=== PATIENT | female | born 1960 | race Caucasian/White ===

== ENCOUNTER 2016-10-30 07:52 | Emergency (ER) | payer BC ==
[2016-10-30 07:54] VITALS: O2SAT 100
[2016-10-30] MEDS ORDERED: ANTIVERT 25 MG PO ONE (08:23)
[2016-10-30] MEDS ORDERED: Zofran 4 MG/2 ML VIAL IV ONE (08:24)
--- NOTE | 2016-10-30 08:24 | ERPHSYRPT ---
- History of Present Illness Time Seen by Provider: 10/30/16 08:12 Source: patient Exam Limitations: clinical condition Patient Subjective Stated Complaint: DIZZINESS, NAUSEA, DISORIENTATED AT TIME. Triage Nursing Assessment: ALERT X3, PUPILS EQUAL & REACTIVE TO LIGHT 3MM RESPIRATIONS EASY/NORMAL. ABLE TO MOVE ALL EXTERMITIES. NO PAIN AT THIS TIME. GAIT IS UNSTEADY DUE TO DIZZINESS. Physician History: PATIENT COMPLAINS OF DIZZINESS SINCE YESTERDAY WORSE UPON MOTION OF HEAD, LOOKING UP, ASSOCIATED WITH SLIGHT DISORIENTATION, LIGHTHEADEDNESS, AND NAUSEA. DENIES BLURRED VISION, HEADACHE. STATES GAIT IS UNSTEADY DURING EVENTS OF DIZZINESS. Timing/Duration: yesterday Severity: moderate Character of Deficits: other (SLIGHT UNSTEADY GAIT) Deficits: off balance Baseline/Normal Cognition: alert oriented x 3 Current Cognition: alert oriented x 3 Baseline Gait: walks w/o assistance Associated Symptoms: nausea Allergies/Adverse Reactions: divalproex sodium [From Depakote] Allergy (Verified 11/30/14 10:39) adhesive tape Adverse Reaction (Verified 10/30/16 08:11) Rash RILEY SKIN latex Adverse Reaction (Verified 10/30/16 08:11) Rash Home Medications: Alprazolam [Xanax] 0.5 mg PO DAILY PRN PRN 07/07/13 [History] Cyclobenzaprine HCl 10 mg [Flexeril 10 MG] 10 mg PO BID PRN PRN 11/30/14 [ History] Buspirone HCl 5 mg [Buspar 5 mg] 5 mg PO BID 10/30/16 [History] Estradiol [Estrace] 42.5 gm VG WEEKLY 10/30/16 [History] Hydrocodone Bit/Acetaminophen [[place] 5-325 Tablet] 1 each PO DAILY PRN PRN 10/30 [History] Silver Sulfadiazine 50 gm [Silvadene 50 gm] 50 gm TP UD 10/30/16 [History] Hx Tetanus, Diphtheria Vaccination/Date Given: Yes Hx Influenza Vaccination/Date Given: No Hx Pneumococcal Vaccination/Date Given: Yes (2012) Immunizations Up to Date: Yes - Review of Systems Constitutional: No Fever, No Chills Eyes: No Symptoms Ears, Nose, & Throat: No Symptoms Respiratory: No Cough, No Dyspnea Cardiac: No Chest Pain, No Edema, No Syncope Abdominal/Gastrointestinal: Nausea, No Abdominal Pain, No Vomiting, No Diarrhea Genitourinary Symptoms: No Symptoms, No Dysuria Musculoskeletal: No Symptoms, No Back Pain, No Neck Pain Skin: No Rash Neurological: Dizziness, No Focal Weakness, No Sensory Changes Psychological: No Symptoms Endocrine: No Symptoms All Other Systems: Reviewed and Negative - Past Medical History Pertinent Past Medical History: Yes Neurological History: No Pertinent History ENT History: No Pertinent History Cardiac History: No Pertinent History Respiratory History: No Pertinent History Endocrine Medical History: No Pertinent History Musculoskeletal History: Other GI Medical History: No Pertinent History History: No Pertinent History Psycho-Social History: Anxiety Female Reproductive Disorders: No Pertinent History Other Medical History: BULDGING DISK. BARRIATIC SURGERY - Past Surgical History Past Surgical History: Yes Neuro Surgical History: No Pertinent History Cardiac: No Pertinent History Respiratory: No Pertinent History Gastrointestinal: Appendectomy, Cholecystectomy Genitourinary: No Pertinent History Musculoskeletal: No Pertinent History Female Surgical History: Section, Hysterectomy Other Surgical History: BARIATRIC SURGERY - Social History Smoking Status: Former smoker Exposure to second hand smoke: No Drug Use: none Patient Lives Alone: No Significant Family History: no pertinent family hx - Female History Hx Last Menstrual Period: 2000 - Nursing Vital Signs Nursing Vital Signs: Initial Vital Signs Temperature 98.2 F Temperature Source Oral Pulse Rate 59 Respiratory Rate 16 Blood Pressure [] 109/59 Pain Intensity 0 - [place] Coma Scale Best Eye Response ([place]): (4) open spontaneously Best Verbal Response ([place]): (5) oriented Best Motor Response ([place]): (6) obeys commands [place] Total: 15 - Physical Exam General Appearance: no apparent distress Eye Exam: bilateral eye: normal inspection, PERRL Ears, Nose, Throat Exam: normal ENT inspection Neck Exam: normal inspection Respiratory: normal breath sounds Cardiovascular: regular rate/rhythm, normal heart sounds Gastrointestinal: soft, normal bowel sounds Back Exam: normal inspection, normal range of motion Extremity Exam: normal inspection, normal range of motion Peripheral Pulses: carotid (R): 2+, carotid (L): 2+, femoral (R): 2+, femoral (L ): 2+, dorsalis-pedis (R): 2+, dorsalis-pedis (L): 2+ 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, 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 Exam: normal hearing, normal speech Coordination/Gait: normal finger to nose DTR: bicep (R): 2+, bicep (L): 2+, tricep (R): 2+, tricep (L): 2+, knee (R): 2+ , knee (L): 2+, ankle (R): 2+, ankle (L): 2+ Skin Exam: normal color SpO2: 100 Oxygen Delivery: Room Air - Course EKG Interpreted by Me: RATE, Sinus Jon, NORMAL AXIS - CT Exams Head CT Interpretation: Discussed w/radiologist (THERE IS A 14MM CALCIFIED MENINGIOMA IN THE LEFT PARIETAL CONVEXITY, NO EDEMA, OR MASS EFFECT) Ordered Tests: Active Orders 24 hr Category Date Time Status Geology Associate STAT Care 10/30/16 08:19 Active EKG-ER Only STAT Care 10/30/16 08:22 Active IV Insertion STAT Care 10/30/16 08:23 Active Visual Acuity STAT Care 10/30/16 08:21 Active HEAD WITHOUT CONTRAST [CT] Stat Exams 10/30/16 08:22 Completed BMP Stat Lab 10/30/16 08:35 Completed CBC W DIFF Stat Lab 10/30/16 08:35 Completed MAGNESIUM Stat Lab 10/30/16 08:35 Completed Medication Summary Generic Name Dose Route Start Last Admin Trade Name Freq PRN Reason Stop Dose Admin Sodium Chloride 1,000 mls @ 50 mls/hr 10/30/16 08:30 10/30/16 08:49 Sodium Chloride 0.9% 1000 Ml IV 11/29/16 08:29 50 mls/hr .Q20H INDU Administration Discontinued Medications Generic Name Dose Route Start Last Admin Trade Name Freq PRN Reason Stop Dose Admin Sodium Chloride Confirm 10/30/16 08:47 Sodium Chloride 0.9% 1000 Ml Administered 10/30/16 08:48 Dose 1,000 mls @ ud .ROUTE .STK-MED ONE Meclizine HCl 25 mg 10/30/16 08:23 10/30/16 08:49 Antivert 25 Mg PO 10/30/16 08:24 25 mg STAT ONE Administration Meclizine HCl Confirm 10/30/16 08:46 Antivert 25 Mg Administered 10/30/16 08:47 Dose 25 mg .ROUTE .STK-MED ONE Ondansetron HCl 4 mg 10/30/16 08:24 10/30/16 08:49 Zofran 4 Mg/2 Ml Vial IV 10/30/16 08:25 4 mg STAT ONE Administration Ondansetron HCl Confirm 10/30/16 08:46 Zofran 4 Mg/2 Ml Vial Administered 10/30/16 08:47 Dose 4 mg .ROUTE .STK-MED ONE Lab/Rad Data: Laboratory Result Diagrams 10/30/16 08:35 10/30/16 08:35 Laboratory Results 10/30/16 10/30/16 Range/Units 08:35 08:35 WBC 5.0 (4.0-10.5) K/mm3 RBC 4.53 (4.1-5.4) M/mm3 Hgb 13.3 (12.0-16.0) gm/dl Hct 40.5 (35-47) % MCV 89.4 (78-100) fl MCH 29.4 (26-32) pg MCHC 32.8 (32-36) g/dl RDW 12.9 (11.5-14.0) % Plt Count 237 (150-450) K/mm3 MPV 10.0 H (6-9.5) fl Gran % 67.7 H (36.0-66.0) % Lymphocytes % 23.3 L (24.0-44.0) % Monocytes % 6.4 (0.0-12.0) % Eosinophils % 2.2 (0.00-5.0) % Basophils % 0.4 (0.0-0.4) % Basophils # 0.02 (0-0.4) Sodium 142 (136-145) mEq/L Potassium 4.1 (3.5-5.1) mEq/L Chloride 106 (98-107) mEq/L Carbon Dioxide 27.5 (21-32) mEq/L Anion Gap 13.0 (5-15) MEQ/L BUN 15 (9-20) mg/dL Creatinine 0.73 (0.55-1.30) mg/dl Estimated GFR > 60 ML/MIN Glucose 110 (70-110) MG/DL Calcium 9.3 (8.5-10.1) mg/dL Magnesium 2.2 (1.8-2.4) mg/dL - Progress Progress Note: 10/30/16 10:42 PATIENT ADMINISTERED ANTIVERT 25MG ORALLY. IV NORMAL SALINE 100ML/HR, ZOFRAN 4MG IV Discussed with Dr.: Other (DISCUSSED WITH PATIENT'S NEUROLOGIST DR HUDSON AT 1030, WILL EVALUATE IN HIS OFFICE AT 11AM TOMORROW) Will see patient in: other Counseled pt/family regarding: lab results, diagnosis, need for follow-up, rad results - Departure Time of Disposition: 10:54 Departure Disposition: Home Clinical Impression: ACUTE VERTIO, LEFT PARIETAL MENINGOMA Condition: Stable Critical Care Time: No Additional Instructions: ANTIVERT 25MG EVERY 8 HOURS FOR DIZZINESS NEEDED. FOLLOWUP WITH DR LARKIN IN HIS OFFICE AT 11AM TOMORROW. AVOID DRIVING MOTOR VEHICLE UNTIL APPOINTMENT. ZOFRAN 4MG EVERY 4 HOURS FOR NAUSEA NEEDED. Prescriptions: Meclizine HCl 25 mg [Antivert 25 mg] 25 mg PO TIDPRN #20 tablet
[2016-10-30] MEDS ORDERED: Sodium Chloride 0.9% 1000 ML 1,000 ML IV SCH (08:30)
[2016-10-30] MEDS ORDERED: Zofran 4 MG/2 ML VIAL ONE (08:46)
[2016-10-30] MEDS ORDERED: ANTIVERT 25 MG ONE (08:46)
[2016-10-30] MEDS ORDERED: Sodium Chloride 0.9% 1000 ML 1,000 ML ONE (08:47)
[2016-10-30 08:50] LABS: BASOPHIL % 0.4 % (0.0-0.4); Eosinophil % 2.2 % (0.00-5.0); Granulocytes % 67.7 % (36.0-66.0); Lymphocytes % 23.3 % (24.0-44.0); Mean Cell Volume 89.4 fl (78-100); Mean Corpuscular Hemoglobin 29.4 pg (26-32); Monocytes % 6.4 % (0.0-12.0); Platelet Count 237 K/mm3 (150-450); Red Blood Count 4.53 M/mm3 (4.1-5.4); Red Cell Distribution Width 12.9 % (11.5-14.0)
[2016-10-30 09:04] LABS: BLOOD UREA NITROGEN 15 mg/dL (9-20); CHLORIDE 106 mEq/L (98-107); Carbon Dioxide 27.5 mEq/L (21-32); Glucose 110 MG/DL (70-110); MAGNESIUM 2.2 mg/dL (1.8-2.4); Potassium 4.1 mEq/L (3.5-5.1); SODIUM 142 mEq/L (136-145)
--- NOTE | 2016-10-30 09:20 | XRAY ---
Indication: Dizziness and disorientation. Multiple contiguous axial images obtained through the head without contrast. Comparison: None There is a 14 mm calcified meningioma in the left parietal convexity. No acute intracranial hemorrhage, abnormal extra-axial fluid collection, or mass effect. Fourth ventricle is midline without hydrocephalus. Dave-white matter differentiation preserved. Bony calvarium intact. Visualized paranasal sinuses and mastoid air cells are pneumatized and clear. Impression: Left parietal calcified meningioma. No acute intracranial abnormalities. CT DI 70.87
[2016-10-30 10:39] VITALS: BP 109/59; PULSE 59
== END 2016-10-30 11:05 | disposition home or self-care (01) ==
LOC: ED 07:52
DX: R42 Dizziness and giddiness (principal); C70.0 Malignant neoplasm of cerebral meninges; R11.0 Nausea; R41.0 Disorientation, unspecified
CPT/HCPCS: 36000; 36415; 70450; 80048; 83735; 85025; 93005; 93041; 96360; 96361; 99283; J2405

== ENCOUNTER 2021-04-15 10:50 | Emergency (ER) | payer BC ==
[2021-04-15 11:26] LABS: Absolute Neutrophil Ct (ANC) 6.33 (1.4-6.9); BASOPHIL % 0.3 % (0.0-0.4); Basophil (Absolute #) 0.02 (0-0.4); Eosinophil % 0.4 % (0.00-5.0); Eosinophil (Absolute #) 0.03 (0-0.5); Hematocrit 42.1 % (35-47); Hemoglobin 13.7 gm/dl (12.0-16.0); Lymphocyte (Absolute #) 0.97 (1.0-4.6); Lymphocytes % 12.5 % (24.0-44.0); Mean Cell Volume 89.6 fl (78-100); Mean Corpuscular Hemoglobin 29.1 pg (26-32); Mean Corpuscular Hgb Concent. 32.5 g/dl (32-36); Mean Platelet Volume 9.8 fl (7.5-11.0); Monocyte (Absolute #) 0.44 (0.0-1.3); Monocytes % 5.6 % (0.0-12.0); Neutrophil % 81.2 % (36.0-66.0); Platelet Count 287 K/mm3 (150-450); Red Cell Distribution Width 14.3 % (11.5-14.0); White Blood Count 7.8 K/mm3 (4.0-10.5)
[2021-04-15 11:35] LABS: ALKALINE PHOSPHATASE 75 U/L (38-126); BLOOD UREA NITROGEN 14 mg/dL (7-17); CHLORIDE 103 mmol/L (98-107); CK-Creatinine Phosphokinase 94 U/L (30-135); Calcium 9.7 mg/dL (8.4-10.2); Carbon Dioxide 26 mmol/L (22-30); Creatinine 1 0.56 mg/dL (0.52-1.04); EST GLOMERULAR FILTRATION RATE > 60.0 ML/MIN; Glucose 105 mg/dL (74-106); Potassium 4.1 mmol/L (3.5-5.1); SGOT/AST 29 U/L (14-36); SGPT/ALT 21 U/L (0-35); SODIUM 139 mmol/L (137-145); Total Protein 7.7 g/dL (6.3-8.2)
--- NOTE | 2021-04-15 12:24 | ERPHSYRPT ---
- History of Present Illness Time Seen by Provider: 04/15/21 11:00 Source: patient Patient Subjective Stated Complaint: pt reports possible seizure this morning, states she woke at 7am and remembers receiving a text from a friend and then she woke again at 10am lying on the floor next to her bed. pt states bed was made and she had taken her meds but does not remember doing those things. pt states she does have abrasions to her tongue and some soreness to her right shoulder. pt reports history of seizures 20 years ago related to stress, pt reports she is currently under a lot of stress Triage Nursing Assessment: pt is aox3, pupils perrl, pt speech clear, normal, answers all questions appropriately, pt ambulatory to room with no difficulties, pt radial pulses strong and equal, cap refill < 3 seconds, pt skin pink warm dry. pt with multiple abrasions to bilat tongue and tip, no bleeding at this time. pt ROM and sensation intact. Physician History: Patient is a 60-year-old female who presents with a questionable seizure at home this morning. Patient does have a he is history of seizures 20 years ago which were stress related she received no recent anticonvulsive therapy for the past 3 years. She does have Silvia anxiety disorder does take Xanax as prescribed she had some abrasions to the tongue this morning and pain in her right shoulder where she had previously had rotator cuff surgery. This morning she got up and was texting a friend at 7 AM her next cognitive episode was on the found herself on the floor at 10 AM the bed had been made her tongue had abrasions and felt strange she apparently did bite her tongue. Other things was that she had a recent EGD and grew very cold after the anesthetic and had to be given warm blankets she also had rotator cuff therapy surgery on the right shoulder 1220 and has been off work for almost a year she is under a great deal of stress from many other factors in her life. Timing/Duration: today Severity: moderate Character of Deficits: none Deficits: no difficulties Baseline/Normal Cognition: alert oriented x 3 Current Cognition: alert oriented x 3 Baseline Gait: walks w/o assistance Associated Symptoms: loss of consciousness Allergies/Adverse Reactions: adhesive tape Adverse Reaction (Verified 04/15/21 11:13) Rash [place] SK[place] latex Adverse Reaction (Verified 04/15/21 11:13) Rash Home Medications: Alprazolam [Xanax] 0.5 mg PO DAILY PRN PRN 07/07/13 [History] Acyclovir 200 mg Cap [Zovirax 200 mg ] 200 mg PO HS 04/15/21 [History] Cholecalciferol (Vitamin D3) [Vitamin D] 1 tablet PO HS 04/15/21 [History] Multivitamin [Multi-Vitamin Daily] 1 each PO HS 04/15/21 [History] Omeprazole 40 mg PO HS 04/15/21 [History] Hx Tetanus, Diphtheria Vaccination/Date Given: Yes Hx Influenza Vaccination/Date Given: Yes Hx Pneumococcal Vaccination/Date Given: No Travel Risk - International Travel Have you traveled outside of the country in past 3 weeks: No - Coronavirus Screening Are you exhibiting any of the following symptoms?: No Close contact with a COVID-19 positive Pt in past 14-21 Days: No - Vaccine Status Have you recieved a Covid-19 vaccination: Yes Spiral Tube Winder: Noise Freaksa - Vaccination Dates Date of 2cond Vaccination (if applicable): 02/10/21 - Review of Systems Constitutional: No Fever, No Chills Eyes: No Symptoms Ears, Nose, & Throat: No Symptoms Respiratory: No Cough, No Dyspnea Cardiac: No Chest Pain, No Edema, No Syncope Abdominal/Gastrointestinal: No Abdominal Pain, No Nausea, No Vomiting, No Diarrhea Genitourinary Symptoms: No Dysuria Musculoskeletal: No Back Pain, No Neck Pain Skin: No Rash Neurological: Other (Unusual for the apparent seizure), No Dizziness, No Focal Weakness, No Sensory Changes Psychological: No Symptoms, Anxiety, Depression Endocrine: No Symptoms All Other Systems: Reviewed and Negative - Past Medical History Pertinent Past Medical History: Yes Neurological History: Seizures ENT History: No Pertinent History Cardiac History: No Pertinent History Respiratory History: No Pertinent History Endocrine Medical History: No Pertinent History Musculoskeletal History: Arthritis, Fractures GI Medical History: No Pertinent History History: No Pertinent History Psycho-Social History: Anxiety Female Reproductive Disorders: No Pertinent History Other Medical History: BULDGING DISK. BARRIATIC SURGERY - Past Surgical History Past Surgical History: Yes Neuro Surgical History: No Pertinent History Cardiac: No Pertinent History Respiratory: No Pertinent History Gastrointestinal: Appendectomy, Cholecystectomy Genitourinary: No Pertinent History Musculoskeletal: Orthopedic Surgery Female Surgical History: Section, Hysterectomy Other Surgical History: BARIATRIC SURGERY. bilat shoulder surgeries - Social History Smoking Status: Former smoker Exposure to second hand smoke: No Drug Use: none Patient Lives Alone: No Significant Family History: no pertinent family hx - Nursing Vital Signs Nursing Vital Signs: Initial Vital Signs Temperature 98.0 F 04/15/21 10:52 Pulse Rate 86 04/15/21 10:52 Respiratory Rate 18 04/15/21 10:52 Blood Pressure 144/84 04/15/21 10:52 O2 Sat by Pulse Oximetry 100 04/15/21 10:52 Pain Scale Pain Intensity 5 - [place] Coma Scale Best Eye Response ([place]): (4) open spontaneously Best Verbal Response ([place]): (5) oriented Best Motor Response ([place]): (6) obeys commands [place] Total: 15 - Physical Exam General Appearance: no apparent distress, alert Eye Exam: bilateral eye: PERRL, EOMI Ears, Nose, Throat Exam: normal ENT inspection, moist mucous membranes Neck Exam: normal inspection, non-tender, supple Respiratory: normal breath sounds, lungs clear, airway intact, No respiratory distress Cardiovascular: regular rate/rhythm, No edema Gastrointestinal: soft, No tenderness, No distention Back Exam: normal inspection Extremity Exam: other (There is tenderness over the right clavicular shoulder area to palpation full range of motion.), No pedal edema Peripheral Pulses: carotid (R): 2+, carotid (L): 2+ 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, 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: tongue midline Coordination/Gait: normal finger to nose, normal gait Motor/Sensory: no motor deficit, no sensory deficit, no pronator drift Skin Exam: normal color, warm, dry, No rash SpO2 Interpretation: normal SpO2: 100 O2 Delivery: Room Air - Course Nursing assessment & vital signs reviewed: Yes EKG Interpreted by Me: RATE (57), Sinus Rhythm, NORMAL AXIS, NORMAL INTERVALS, NORMAL QRS, NORMAL ST-T - CT Exams Head CT Interpretation: Tele-radiologist Report Ordered Tests: Active Orders 24 hr Category Date Time Status CHEST 1 VIEW (PORTABLE) Stat Exams 04/15/21 11:06 Ordered HEAD WITHOUT CONTRAST [CT] Stat Exams 04/15/21 11:06 Ordered SHOULDER Stat Exams 04/15/21 11:08 Ordered CBC W DIFF Stat Lab 04/15/21 11:25 Completed CK-Creatinine Phosphokinase Stat Lab 04/15/21 11:25 Completed CMP Stat Lab 04/15/21 11:25 Completed Lactic Acid Stat Lab 04/15/21 11:06 Completed UA W/RFX UR CULTURE Stat Lab 04/15/21 11:06 Ordered Urine Triage Profile Stat Lab 04/15/21 11:06 Ordered Lab/Rad Data: Laboratory Result Diagrams 04/15/21 11:25 04/15/21 11:25 Laboratory Results 04/15/21 04/15/21 04/15/21 Range/Units 11:25 11:25 11:06 WBC 7.8 (4.0-10.5) K/mm3 RBC 4.70 (4.1-5.4) M/mm3 Hgb 13.7 (12.0-16.0) gm/dl Hct 42.1 (35-47) % MCV 89.6 (78-100) fl MCH 29.1 (26-32) pg MCHC 32.5 (32-36) g/dl RDW 14.3 H (11.5-14.0) % Plt Count 287 (150-450) K/mm3 MPV 9.8 (7.5-11.0) fl Gran % 81.2 H (36.0-66.0) % Eos # (Auto) 0.03 (0-0.5) Absolute Lymphs (auto) 0.97 L (1.0-4.6) Absolute Monos (auto) 0.44 (0.0-1.3) Lymphocytes % 12.5 L (24.0-44.0) % Monocytes % 5.6 (0.0-12.0) % Eosinophils % 0.4 (0.00-5.0) % Basophils % 0.3 (0.0-0.4) % Absolute Granulocytes 6.33 (1.4-6.9) Basophils # 0.02 (0-0.4) Sodium 139 (137-145) mmol/L Potassium 4.1 (3.5-5.1) mmol/L Chloride 103 (98-107) mmol/L Carbon Dioxide 26 (22-30) mmol/L Anion Gap 14.0 (5-15) MEQ/L BUN 14 (7-17) mg/dL Creatinine 0.56 (0.52-1.04) mg/dL Estimated GFR > 60.0 ML/MIN Glucose 105 (74-106) mg/dL Lactic Acid 0.9 (0.4-2.0) Calcium 9.7 (8.4-10.2) mg/dL Total Bilirubin 0.80 (0.2-1.3) mg/dL AST 29 (14-36) U/L ALT 21 (0-35) U/L Alkaline Phosphatase 75 (38-126) U/L Creatine Kinase 94 (30-135) U/L Serum Total Protein 7.7 (6.3-8.2) g/dL Albumin 5.0 (3.5-5.0) g/dL - Progress Progress: unchanged - Departure Departure Disposition: Home Clinical Impression: Seizure disorder Condition: Stable Critical Care Time: No Referrals: DOCTOR,NO FAMILY [Primary Care Provider] - Instructions: Seizures, Adult (DC) Additional Instructions: Patient was instructed not to drive climb ladders etc. or participate in any dangerous activity of height. She was instructed to follow-up with neurology. She was told she would need an MRI.
[2021-04-15 12:46] VITALS: BP 131/76; PULSE 64; O2SAT 99
--- NOTE | 2021-04-15 20:12 | XRAY ---
Indication: Seizure. Comparison: July 07, 2013. Portable chest clear. Heart not enlarged. Bony thorax intact again with mild osteopenia and degenerative changes. No new/acute findings.
--- NOTE | 2021-04-15 20:14 | XRAY ---
Indication: Seizure. Multiple contiguous axial images obtained through the head without contrast. Comparison: October 30, 2016. Stable 14 mm calcified meningioma in the left parietal convexity. Again no acute intracranial hemorrhage, abnormal extra-axial fluid collection, or mass effect. Fourth ventricle is midline without hydrocephalus. Dave-white matter differentiation preserved. Bony calvarium intact. Visualized paranasal sinuses and mastoid air cells are clear. Impression: 1. Stable left parietal calcified meningioma. 2. No new/acute intracranial abnormalities. Comment: Preliminary interpretation was made by [facility]. No critical discrepancy.
--- NOTE | 2021-04-15 20:16 | XRAY ---
Indication: Pain following seizure/fall. Comparison: None 3 view right shoulder demonstrates osteopenia, moderate acromioclavicular degenerative arthropathy, and mild glenohumeral degenerative arthropathy. No other bony, articular, or soft tissue abnormalities.
== END 2021-04-15 12:48 | disposition home or self-care (01) ==
LOC: ED 10:50
DX: G40.909 Epilepsy, unspecified, not intractable, without status epilepticus (principal); S00.512A Abrasion of oral cavity, initial encounter; M25.511 Pain in right shoulder; F41.9 Anxiety disorder, unspecified; Z79.899 Other long term (current) drug therapy
CPT/HCPCS: 36000; 36415; 70450; 71045; 73030; 80053; 82550; 83605; 84146; 85025; 99284

== ENCOUNTER 2022-01-29 16:15 | Emergency (ER) | payer BC ==
[2022-01-29 16:48] VITALS: O2SAT 99
--- NOTE | 2022-01-29 16:53 | ERPHSYRPT ---
- History of Present Illness Source: patient Exam Limitations: no limitations Patient Subjective Stated Complaint: pt states "I have beening having this itching for the past couple months. I had these spots and blisters that popped up a week and half ago." Triage Nursing Assessment: pt ambulated into the er; pt is axo x4; c/o rash and itching; pt denies pain; pt states that MD increased seizure medication 2 months ago; pt states since medication increase she has had itching; multiple scabs on yanna hands; pt is itching; dispursed raised marvin areas; clear lung sounds in all lobes; active bowel sounds in all quads; mucus membranes pink and moist; vitals wnl Physician History: 61 yo wf w bullous, erythematous eruption on hands 2 wks ago which has resolved and also complains of generalized pruritis x 1month. She has a few diffuse, small erythematous areas scattered on her body. 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 Fever/cough/N/V/D/dyspnea/CP/AVELAR are all denied. Timing/Duration: other (1month) Quality: itchy Severity: mild Location: generalized Possible Causes: no cause identified (?Lamictal) Associated Symptoms: blisters (Hands that have resolved), rash, No change in skin texture, No difficulty breathing, No edema, No fever, No flushing, No headache, No hives, No jaundice, No malaise, No nasal congestion, No numbness, No pallor, No paresthesia, No petechiae, No sore throat Allergies/Adverse Reactions: nitrofurantoin [From Macrobid] Allergy (Verified 01/29/22 16:24) sulfamethoxazole [From Bactrim] Allergy (Verified 01/29/22 16:24) trimethoprim [From Bactrim] Allergy (Verified 01/29/22 16:24) adhesive tape Adverse Reaction (Verified 01/29/22 16:24) Rash [place] SK[place] latex Adverse Reaction (Verified 01/29/22 16:24) Rash Home Medications: Alprazolam [Xanax] 0.5 mg PO DAILY 07/07/13 [History] Multivitamin [Multi-Vitamin Daily] 1 each PO HS 04/15/21 [History] Omeprazole 40 mg PO HS 04/15/21 [History] Lamotrigine [Lamotrigine ER] 100 mg PO BID 01/29/22 [History] Hx Tetanus, Diphtheria Vaccination/Date Given: Yes Hx Influenza Vaccination/Date Given: No Hx Pneumococcal Vaccination/Date Given: No Travel Risk - International Travel Have you traveled outside of the country in past 3 weeks: No - Coronavirus Screening Are you exhibiting any of the following symptoms?: No Close contact with a COVID-19 positive Pt in past 14-21 Days: No - Vaccine Status Have you recieved a Covid-19 vaccination: Yes Team Primary Care Physician: Moderna - Vaccination Dates Date of 2cond Vaccination (if applicable): 02/10/21 - Review of Systems Constitutional: No Symptoms Eyes: No Symptoms Ears, Nose, & Throat: No Symptoms Respiratory: No Symptoms Cardiac: No Symptoms Abdominal/Gastrointestinal: No Symptoms Genitourinary Symptoms: No Symptoms Musculoskeletal: No Symptoms Skin: Rash Neurological: No Symptoms Psychological: No Symptoms Endocrine: No Symptoms Hematologic/Lymphatic: No Symptoms Immunological/Allergic: No Symptoms - Past Medical History Pertinent Past Medical History: Yes Neurological History: Seizures ENT History: No Pertinent History Cardiac History: No Pertinent History Respiratory History: No Pertinent History Endocrine Medical History: No Pertinent History Musculoskeletal History: Arthritis, Fractures GI Medical History: No Pertinent History History: No Pertinent History Psycho-Social History: Anxiety Female Reproductive Disorders: No Pertinent History Other Medical History: BULDGING DISK. BARRIATIC SURGERY - Past Surgical History Past Surgical History: Yes Neuro Surgical History: No Pertinent History Cardiac: No Pertinent History Respiratory: No Pertinent History Gastrointestinal: Appendectomy, Cholecystectomy Genitourinary: No Pertinent History Musculoskeletal: Orthopedic Surgery Female Surgical History: Section, Hysterectomy Other Surgical History: BARIATRIC SURGERY. bilat shoulder surgeries - Social History Smoking Status: Former smoker Exposure to second hand smoke: No Drug Use: none Patient Lives Alone: No Significant Family History: no pertinent family hx - Nursing Vital Signs Nursing Vital Signs: Initial Vital Signs Temperature 97.6 F 01/29/22 16:26 Pulse Rate 72 01/29/22 16:26 Respiratory Rate 16 01/29/22 16:26 Blood Pressure 122/66 01/29/22 16:26 O2 Sat by Pulse Oximetry 99 01/29/22 16:26 Pain Scale Pain Intensity 0 WNL - Physical Exam General Appearance: no apparent distress Eye Exam: PERRL/EOMI, eyes nml inspection Ears, Nose, Throat Exam: normal ENT inspection, TMs normal, pharynx normal, moist mucous membranes Neck Exam: normal inspection, non-tender, supple Respiratory Exam: normal breath sounds, lungs clear, airway intact Cardiovascular Exam: regular rate/rhythm, normal heart sounds, normal peripheral pulses, capillary refill <2 sec, No murmur Gastrointestinal/Abdomen Exam: soft, normal bowel sounds, No tenderness Back Exam: normal inspection, normal range of motion, No CVA tenderness Extremity Exam: normal inspection, normal range of motion Neurologic Exam: alert, oriented x 3, cooperative, electronic tech II-XII nml as tested, normal mood/affect, nml cerebellar function, nml station & gait, sensation nml Skin Exam: other (Few punctate erythematous areas arms) Lymphatic Exam: No adenopathy SpO2 Interpretation: normal SpO2: 99 O2 Delivery: Room Air - Course Nursing assessment & vital signs reviewed: Yes Ordered Tests: Active Orders 24 hr Category Date Time Status CBC W DIFF Stat Lab 01/29/22 16:48 Completed CMP Stat Lab 01/29/22 16:48 Completed Lab/Rad Data: Laboratory Result Diagrams 01/29/22 16:48 01/29/22 16:48 Laboratory Results 01/29/22 01/29/22 Range/Units 16:48 16:48 WBC 6.3 (4.0-10.5) K/mm3 RBC 3.99 L (4.1-5.4) M/mm3 Hgb 11.4 L (12.0-16.0) gm/dl Hct 35.2 (35-47) % MCV 88.2 (78-100) fl MCH 28.6 (26-32) pg MCHC 32.4 (32-36) g/dl RDW 13.0 (11.5-14.0) % Plt Count 288 (150-450) K/mm3 MPV 9.3 (7.5-11.0) fl Gran % 65.0 (36.0-66.0) % Eos # (Auto) 0.07 (0-0.5) Absolute Lymphs (auto) 1.60 (1.0-4.6) Absolute Monos (auto) 0.50 (0.0-1.3) Lymphocytes % 25.6 (24.0-44.0) % Monocytes % 8.0 (0.0-12.0) % Eosinophils % 1.1 (0.00-5.0) % Basophils % 0.3 (0.0-0.4) % Absolute Granulocytes 4.06 (1.4-6.9) Basophils # 0.02 (0-0.4) Sodium 138 (137-145) mmol/L Potassium 4.2 (3.5-5.1) mmol/L Chloride 104 (98-107) mmol/L Carbon Dioxide 25 (22-30) mmol/L Anion Gap 12.8 (5-15) MEQ/L BUN 19 H (7-17) mg/dL Creatinine 0.56 (0.52-1.04) mg/dL Estimated GFR > 60.0 ML/MIN Glucose 86 (74-106) mg/dL Calcium 9.1 (8.4-10.2) mg/dL Total Bilirubin 0.80 (0.2-1.3) mg/dL AST 35 (14-36) U/L ALT 18 (0-35) U/L Alkaline Phosphatase 79 (38-126) U/L Serum Total Protein 6.5 (6.3-8.2) g/dL Albumin 4.3 (3.5-5.0) g/dL - Progress Counseled pt/family regarding: lab results, diagnosis, need for follow-up - Departure Departure Disposition: Home Clinical Impression: Rash and nonspecific skin eruption Condition: Stable Critical Care Time: No Referrals: JONATAN VALLADARES [Primary Care Provider] - Follow up/PCP as directed Instructions: Skin Rash (DC) Additional Instructions: Stop your Lamictal and follow up with your neurologist in AM Return to ER as needed
[2022-01-29 16:54] LABS: Absolute Neutrophil Ct (ANC) 4.06 (1.4-6.9); Basophil (Absolute #) 0.02 (0-0.4); Eosinophil % 1.1 % (0.00-5.0); Eosinophil (Absolute #) 0.07 (0-0.5); Hematocrit 35.2 % (35-47); Hemoglobin 11.4 gm/dl (12.0-16.0); Lymphocytes % 25.6 % (24.0-44.0); Mean Cell Volume 88.2 fl (78-100); Mean Corpuscular Hemoglobin 28.6 pg (26-32); Mean Corpuscular Hgb Concent. 32.4 g/dl (32-36); Mean Platelet Volume 9.3 fl (7.5-11.0); Platelet Count 288 K/mm3 (150-450); Red Blood Count 3.99 M/mm3 (4.1-5.4); White Blood Count 6.3 K/mm3 (4.0-10.5)
[2022-01-29 17:09] LABS: ALBUMIN 4.3 g/dL (3.5-5.0); ALKALINE PHOSPHATASE 79 U/L (38-126); ANION GAP 12.8 MEQ/L (5-15); BLOOD UREA NITROGEN 19 mg/dL (7-17); CHLORIDE 104 mmol/L (98-107); Calcium 9.1 mg/dL (8.4-10.2); Carbon Dioxide 25 mmol/L (22-30); Creatinine 1 0.56 mg/dL (0.52-1.04); EST GLOMERULAR FILTRATION RATE > 60.0 ML/MIN; Glucose 86 mg/dL (74-106); Potassium 4.2 mmol/L (3.5-5.1); SGOT/AST 35 U/L (14-36); SGPT/ALT 18 U/L (0-35); SODIUM 138 mmol/L (137-145); Total Protein 6.5 g/dL (6.3-8.2)
[2022-01-29 17:18] VITALS: BP 106/64; PULSE 45
== END 2022-01-29 17:27 | disposition home or self-care (01) ==
LOC: ED 16:15
DX: R21 Rash and other nonspecific skin eruption (principal); L29.9 Pruritus, unspecified; Z79.899 Other long term (current) drug therapy
CPT/HCPCS: 36415; 80053; 85025; 99283

== ENCOUNTER 2023-06-09 12:16 | Emergency (ER) | payer BC, OTHER ==
--- NOTE | 2023-06-09 12:24 | ERPHSYRPT ---
- History of Present Illness Time Seen by Provider: 06/09/23 12:24 Source: patient, family Exam Limitations: no limitations Physician History: This is a 62-year-old white female patient who has known seizure disorder on Xanax and lamotrigine who states she took her medicine as prescribed and had an episode of seizure with post seizure confusion per patient's significant other. The seizure was not witnessed. However, it was assumed she had a seizure since she had a headache followed by a period of confusion which was witnessed by her significant other. Patient has known meningioma brain tumor which has not changed in many years. She has not seen her neurologist in a while. Patient denies chest pain. She denies hitting her head before this episode or during her episode. She does have a left-sided headache. She denies shortness of breath. She has had no nausea vomiting or diarrhea symptoms. She did not have any urinary or bowel incontinence. There are no new stressors. There is been no change in her medications. Timing/Duration: today Severity: mild Character of Deficits: none Deficits: no difficulties Baseline/Normal Cognition: alert oriented x 3 Current Cognition: alert oriented x 3 Baseline Gait: walks w/o assistance Associated Symptoms: seizures (Resolved by the time she arrived here to the emergency room. However, there was a brief period of near syncope in the emergency department waiting room that was witnessed.) Allergies/Adverse Reactions: nitrofurantoin [From Macrobid] Allergy (Verified 06/09/23 14:25) sulfamethoxazole [From Bactrim] Allergy (Verified 06/09/23 14:25) trimethoprim [From Bactrim] Allergy (Verified 06/09/23 14:25) adhesive tape Adverse Reaction (Verified 06/09/23 14:25) Rash [place] SKIN latex Adverse Reaction (Verified 06/09/23 14:25) Rash Home Medications: Alprazolam [Xanax] 0.5 mg PO DAILY 07/07/13 [History] Multivitamin [Multi-Vitamin Daily] 1 each PO HS 04/15/21 [History] Omeprazole 40 mg PO HS 04/15/21 [History] Lamotrigine [Lamotrigine ER] 100 mg PO BID 01/29/22 [History] Alendronate Sodium 70 mg [Fosamax 70 MG] 70 mg PO Q7D@0600 06/09/23 [History] Hx Tetanus, Diphtheria Vaccination/Date Given: Yes Hx Influenza Vaccination/Date Given: No Hx Pneumococcal Vaccination/Date Given: No Travel Risk - International Travel Have you traveled outside of the country in past 3 weeks: No - Coronavirus Screening Are you exhibiting any of the following symptoms?: No Close contact with a COVID-19 positive Pt in past 14-21 Days: No - Vaccine Status Have you recieved a Covid-19 vaccination: Yes Box Feeder: Moderna - Vaccination Dates Date of 2cond Vaccination (if applicable): 02/10/21 - Review of Systems Constitutional: No Symptoms Eyes: No Symptoms Ears, Nose, & Throat: No Symptoms Respiratory: No Symptoms Cardiac: No Symptoms Abdominal/Gastrointestinal: No Symptoms Genitourinary Symptoms: No Symptoms Musculoskeletal: No Symptoms Skin: No Symptoms Neurological: Headache (Left side), Seizure (Resolved by the time she was back in the emergency department) Psychological: No Symptoms Endocrine: No Symptoms Hematologic/Lymphatic: No Symptoms Immunological/Allergic: No Symptoms All Other Systems: Reviewed and Negative - Past Medical History Pertinent Past Medical History: Yes Neurological History: Seizures ENT History: No Pertinent History Cardiac History: No Pertinent History Respiratory History: No Pertinent History Endocrine Medical History: No Pertinent History Musculoskeletal History: Arthritis, Fractures GI Medical History: No Pertinent History History: No Pertinent History Psycho-Social History: Anxiety Female Reproductive Disorders: No Pertinent History Other Medical History: BULDGING DISK. BARRIATIC SURGERY - Past Surgical History Past Surgical History: Yes Neuro Surgical History: No Pertinent History Cardiac: No Pertinent History Respiratory: No Pertinent History Gastrointestinal: Appendectomy, Cholecystectomy Genitourinary: No Pertinent History Musculoskeletal: Orthopedic Surgery Female Surgical History: Section, Hysterectomy Other Surgical History: BARIATRIC SURGERY. bilat shoulder surgeries - Social History Smoking Status: Former smoker Exposure to second hand smoke: No Drug Use: none Patient Lives Alone: No Significant Family History: no pertinent family hx - Nursing Vital Signs Nursing Vital Signs: Initial Vital Signs Temperature 97.4 F 06/09/23 12:35 Pulse Rate 84 06/09/23 12:35 Respiratory Rate 18 06/09/23 12:35 Blood Pressure 119/69 06/09/23 12:35 O2 Sat by Pulse Oximetry 99 06/09/23 12:35 Pain Scale Pain Intensity 9 - [place] Coma Scale Best Eye Response ([place]): (4) open spontaneously Best Verbal Response ([place]): (5) oriented Best Motor Response ([place]): (6) obeys commands [place] Total: 15 - Physical Exam General Appearance: no apparent distress, alert, anxiety Eye Exam: bilateral eye: normal inspection, PERRL, EOMI Ears, Nose, Throat Exam: normal ENT inspection, moist mucous membranes Neck Exam: normal inspection, non-tender, supple, full range of motion Respiratory: normal breath sounds, lungs clear, No chest tenderness, No respiratory distress Cardiovascular: regular rate/rhythm, normal heart sounds, normal peripheral pulses Gastrointestinal: soft, normal bowel sounds, No tenderness Pelvic Exam: not done Rectal Exam: not done Back Exam: normal inspection, normal range of motion, No CVA tenderness, No vertebral tenderness Extremity Exam: normal inspection, normal range of motion, pelvis stable 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, oriented x 3, cooperative choker hooker Exam: normal hearing, normal speech, PERRL Coordination/Gait: normal finger to nose, normal gait, normal cerebellar function Motor/Sensory: no motor deficit, no sensory deficit, no pronator drift Skin Exam: normal color, warm, dry SpO2 Interpretation: normal O2 Delivery: Room Air - Course Nursing assessment & vital signs reviewed: Yes Ordered Tests: Active Orders 24 hr Category Date Time Status Clubhouse Manager STAT Care 06/09/23 12:28 Active Clean Catch Urine Specimen STAT Care 06/09/23 12:28 Active EKG-ER Only STAT Care 06/09/23 12:28 Active IV Insertion STAT Care 06/09/23 12:28 Active POCT Glucose Check STAT Care 06/09/23 12:28 Active Pulse Oximetry (ED) STAT Care 06/09/23 12:28 Active HEAD WITHOUT CONTRAST [CT] Stat Exams 06/09/23 12:34 Completed CBC W DIFF Stat Lab 06/09/23 13:00 Completed CMP Stat Lab 06/09/23 13:00 Completed CULTURE,URINE Stat Lab 06/09/23 13:13 Received UA W/RFX UR CULTURE Stat Lab 06/09/23 13:13 Completed Urine Triage Profile Stat Lab 06/09/23 13:13 Completed Medication Summary Discontinued Medications Generic Name Dose Route Start Last Admin Trade Name Freq PRN Reason Stop Dose Admin Morphine Sulfate 4 mg 06/09/23 13:49 06/09/23 13:57 Morphine Sulfate 4 Mg/Ml Injection IV 06/09/23 13:50 4 mg STAT ONE Administration Morphine Sulfate Confirm 06/09/23 13:57 Morphine Sulfate 4 Mg/Ml Injection Administered 06/09/23 13:58 Dose 4 mg .ROUTE .STK-MED ONE Ondansetron HCl 4 mg 06/09/23 13:49 06/09/23 13:58 Ondansetron Hcl 4 Mg/2 Ml Vial IV 06/09/23 13:50 4 mg STAT ONE Administration Ondansetron HCl Confirm 06/09/23 13:56 Ondansetron Hcl 4 Mg/2 Ml Vial Administered 06/09/23 13:57 Dose 4 mg .ROUTE .K-MED ONE Lab/Rad Data: Laboratory Result Diagrams 06/09/23 13:00 06/09/23 13:00 Laboratory Results 06/09/23 06/09/23 06/09/23 Range/Units 13:13 13:13 13:00 WBC (4.0-10.5) x10^3/uL RBC (4.1-5.4) x10^6/uL Hgb (12.0-16.0) g/dL Hct (35-47) % MCV (78-100) fL MCH (26-32) pg MCHC (32-36) g/dL RDW (11.5-14.0) % Plt Count (150-450) x10^3/uL MPV (7.5-11.0) fL Gran % (36.0-66.0) % Immature Gran % (Auto) (0.00-0.4) % Nucleat RBC Rel Count (0.00-0.1) % Eos # (Auto) (0-0.5) x10^3/uL Immature Gran # (Auto) (0.00-0.03) x10^3u/L Absolute Lymphs (auto) (1.0-4.6) x10^3/uL Absolute Monos (auto) (0.0-1.3) x10^3/uL Absolute Nucleated RBC (0.00-0.01) x10^3u/L Lymphocytes % (24.0-44.0) % Monocytes % (0.0-12.0) % Eosinophils % (0.00-5.0) % Basophils % (0.0-0.4) % Absolute Granulocytes (1.4-6.9) x10^3/uL Basophils # (0-0.4) x10^3/uL Sodium 138 (137-145) mmol/L Potassium 4.1 (3.5-5.1) mmol/L Chloride 104 (98-107) mmol/L Carbon Dioxide 25 (22-30) mmol/L Anion Gap 12.4 (5-15) MEQ/L BUN 15 (7-17) mg/dL Creatinine 0.60 (0.52-1.04) mg/dL Estimated GFR > 60.0 ML/MIN Glucose 104 (74-106) mg/dL Calcium 9.2 (8.4-10.2) mg/dL Total Bilirubin 0.90 (0.2-1.3) mg/dL AST 25 (14-36) U/L ALT 23 (0-35) U/L Alkaline Phosphatase 72 (38-126) U/L Serum Total Protein 6.9 (6.3-8.2) g/dL Albumin 4.6 (3.5-5.0) g/dL Urine Color Yellow (Yellow) Urine Appearance Cloudy A (Clear) Urine pH >=9.0 A (4.6-8.0) Ur Specific [place] 1.025 (1.005-1.030) Urine Protein 30 (Negative) Urine Glucose (UA) Negative (Negative) mg/dL Urine Ketones Trace A (Negative) Urine Blood Negative (Negative) Urine Nitrite Negative (Negative) Urine Bilirubin Negative (Negative) Urine Urobilinogen 1.0 A (0.2) mg/dL Ur Leukocyte Esterase Small A (Negative) U Hyaline Cast (Auto) 3-5 A (0-2) /LPF Urine Microscopic RBC 0-2 (0-5) /HPF Urine Microscopic WBC 11-20 A (0-5) /HPF Ur Epithelial Cells Few (None Seen) /HPF Urine Bacteria Many A (None Seen) /HPF Urine Culture Reflexed YES (NO) Urine Opiates Level NEGATIVE (NEGATIVE) Ur Methadone NEGATIVE (NEGATIVE) Urine Barbiturates NEGATIVE (NEGATIVE) Ur Phencyclidine (PCP) NEGATIVE (NEGATIVE) Urine Amphetamine NEGATIVE (NEGATIVE) U Benzodiazepine Level POSITIVE (NEGATIVE) Urine Cocaine NEGATIVE (NEGATIVE) Urine Marijuana (THC) POSITIVE (NEGATIVE) 06/09/23 Range/Units 13:00 WBC 11.6 H (4.0-10.5) x10^3/uL RBC 4.51 (4.1-5.4) x10^6/uL Hgb 13.8 (12.0-16.0) g/dL Hct 41.6 (35-47) % MCV 92.2 (78-100) fL MCH 30.6 (26-32) pg MCHC 33.2 (32-36) g/dL RDW 12.9 (11.5-14.0) % Plt Count 265 (150-450) x10^3/uL MPV 9.5 (7.5-11.0) fL Gran % 86.3 H (36.0-66.0) % Immature Gran % (Auto) 0.4 (0.00-0.4) % Nucleat RBC Rel Count 0.0 (0.00-0.1) % Eos # (Auto) 0.03 (0-0.5) x10^3/uL Immature Gran # (Auto) 0.05 H (0.00-0.03) x10^3u/L Absolute Lymphs (auto) 1.05 (1.0-4.6) x10^3/uL Absolute Monos (auto) 0.42 (0.0-1.3) x10^3/uL Absolute Nucleated RBC 0.00 (0.00-0.01) x10^3u/L Lymphocytes % 9.1 L (24.0-44.0) % Monocytes % 3.6 (0.0-12.0) % Eosinophils % 0.3 (0.00-5.0) % Basophils % 0.3 (0.0-0.4) % Absolute Granulocytes 10.01 H (1.4-6.9) x10^3/uL Basophils # 0.03 (0-0.4) x10^3/uL Sodium (137-145) mmol/L Potassium (3.5-5.1) mmol/L Chloride (98-107) mmol/L Carbon Dioxide (22-30) mmol/L Anion Gap (5-15) MEQ/L BUN (7-17) mg/dL Creatinine (0.52-1.04) mg/dL Estimated GFR ML/MIN Glucose (74-106) mg/dL Calcium (8.4-10.2) mg/dL Total Bilirubin (0.2-1.3) mg/dL AST (14-36) U/L ALT (0-35) U/L Alkaline Phosphatase (38-126) U/L Serum Total Protein (6.3-8.2) g/dL Albumin (3.5-5.0) g/dL Urine Color (Yellow) Urine Appearance (Clear) Urine pH (4.6-8.0) Ur Specific [place] (1.005-1.030) Urine Protein (Negative) Urine Glucose (UA) (Negative) mg/dL Urine Ketones (Negative) Urine Blood (Negative) Urine Nitrite (Negative) Urine Bilirubin (Negative) Urine Urobilinogen (0.2) mg/dL Ur Leukocyte Esterase (Negative) U Hyaline Cast (Auto) (0-2) /LPF Urine Microscopic RBC (0-5) /HPF Urine Microscopic WBC (0-5) /HPF Ur Epithelial Cells (None Seen) /HPF Urine Bacteria (None Seen) /HPF Urine Culture Reflexed (NO) Urine Opiates Level (NEGATIVE) Ur Methadone (NEGATIVE) Urine Barbiturates (NEGATIVE) Ur Phencyclidine (PCP) (NEGATIVE) Urine Amphetamine (NEGATIVE) U Benzodiazepine Level (NEGATIVE) Urine Cocaine (NEGATIVE) Urine Marijuana (THC) (NEGATIVE) - Progress Progress: improved, re-examined Progress Note: 06/09/23 13:53 This patient's medical issue is one of her complexity. Level complexity in the work-up performed is based on review of the patient's past medical history, review of the patient's medication list, review of the patient's drug allergy list, history present illness and physical findings on examination. The work-up in this patient includes CT scan of the head without contrast, placement of an intravenous line, twelve-lead EKG, urinalysis, CBC, CMP and urine triage. This CT scan without contrast was reported to me as being negative for any acute intracranial abnormality. This report was provided to me from the interpretation of the radiologist read. 06/09/23 13:54 06/09/23 14:40 Patient diagnosed, based on review of the patient's history, physical findings, CT scan results and laboratory results I interpreted with breakthrough seizure as well as urinary tract infection. We will treat her urinary tract infection. Patient will be given a gram of Rocephin intravenously in the emergency depar tment and will take cefdinir 300 mg orally twice a day for outpatient treatment of her UTI Counseled pt/family regarding: lab results, diagnosis, need for follow-up, rad results Medical Desision Making - Independent Historian Additional History obtained from: Spouse - Diagnostic Testing Diagnostic test were ordered, analyzed, and reviewed by me: Yes Radiological Interpretation: Reviewed by me, Teleradiologist Report - Risk of complications The pt has a mod risk of morbidity or mortality based on: Need for prescription drug management - Departure Departure Disposition: Home Clinical Impression: Breakthrough seizure, UTI (urinary tract infection) Condition: Stable Critical Care Time: No Referrals: JONATAN VALLADARES [Primary Care Provider] - Follow up/PCP as directed Additional Instructions: Continue your medication as prescribed. Call your neurologist on 06/11/2023 for further evaluation and management. Take your antibiotics as prescribed Prescriptions: Cefdinir 300 mg PO BID #14 cap
[2023-06-09 12:51] VITALS: TEMP 97.4
--- NOTE | 2023-06-09 13:07 | XRAY ---
CLINICAL HISTORY:pain COMPARISON:04/15/2021. TECHNIQUE:CT scan of the brain without contrast administration. Images were acquired in axial cuts with coronal and sagittal reformation. FINDINGS: Normal CT appearance of the cerebral parenchyma. No area of abnormally low or high attenuation value was seen. Age-matched involutional brain changes are noted. No shift of the midline structures. No evidence of intra or extra axial recent hematoma. Normal appearance of the posterior fossa structures including the brainstem and cerebellum. A durally based calcified lesion is noted at the left parietal region, measuring 1.5 x 1.4 x 1.5 cm in maximal dimensions. Bone window settings showed no evidence of fractures or destructive lesions. IMPRESSION: 1. No evidence of acute infarction or recent hemorrhage. 2. Age-matched involutional brain changes. 3. 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 No significant change since the prior study. No associated edema or significant gliosis. The [facility] ER was called at [phone] at 12:00 PM DRUG SAFETY SCIENTIST, 06/09/2023 and Stroke Results were verbally communicated to Andree. Electronically Signed by: Chandler Castro MD. (06/09/2023 12:06:29 DRUG SAFETY SCIENTIST)
[2023-06-09 13:10] LABS: Absolute Neutrophil Ct (ANC) 10.01 x10^3/uL (1.4-6.9); BASOPHIL % 0.3 % (0.0-0.4); Basophil (Absolute #) 0.03 x10^3/uL (0-0.4); Eosinophil % 0.3 % (0.00-5.0); Eosinophil (Absolute #) 0.03 x10^3/uL (0-0.5); Hematocrit 41.6 % (35-47); Hemoglobin 13.8 g/dL (12.0-16.0); IMMATURE GRAN # 0.05 x10^3u/L (0.00-0.03); IMMATURE GRAN % 0.4 % (0.00-0.4); Lymphocyte (Absolute #) 1.05 x10^3/uL (1.0-4.6); Lymphocytes % 9.1 % (24.0-44.0); Mean Cell Volume 92.2 fL (78-100); Mean Corpuscular Hemoglobin 30.6 pg (26-32); Mean Corpuscular Hgb Concent. 33.2 g/dL (32-36); Mean Platelet Volume 9.5 fL (7.5-11.0); Monocyte (Absolute #) 0.42 x10^3/uL (0.0-1.3); Monocytes % 3.6 % (0.0-12.0); Neutrophil % 86.3 % (36.0-66.0); Platelet Count 265 x10^3/uL (150-450); Red Blood Count 4.51 x10^6/uL (4.1-5.4); Red Cell Distribution Width 12.9 % (11.5-14.0); White Blood Count 11.6 x10^3/uL (4.0-10.5)
[2023-06-09 13:26] LABS: ALBUMIN 4.6 g/dL (3.5-5.0); ALKALINE PHOSPHATASE 72 U/L (38-126); ANION GAP 12.4 MEQ/L (5-15); BLOOD UREA NITROGEN 15 mg/dL (7-17); CHLORIDE 104 mmol/L (98-107); Calcium 9.2 mg/dL (8.4-10.2); Carbon Dioxide 25 mmol/L (22-30); EST GLOMERULAR FILTRATION RATE > 60.0 ML/MIN; Glucose 104 mg/dL (74-106); Potassium 4.1 mmol/L (3.5-5.1); SGOT/AST 25 U/L (14-36); SGPT/ALT 23 U/L (0-35); SODIUM 138 mmol/L (137-145); Total Protein 6.9 g/dL (6.3-8.2)
[2023-06-09 13:49] LABS: Appearance Cloudy (Clear); Bacteria Many /HPF (None Seen); Bilirubin Negative (Negative); Blood Negative (Negative); Epithelial Cells Few /HPF (None Seen); Glucose, Urine Negative (Negative); Ketones Trace (Negative); Leukocyte Esterase Small (Negative); Nitrite Negative (Negative); Ph >=9.0 (4.6-8.0); Protein,Urine Dip 30 (Negative); RBC 0-2 /HPF (0-5); Specific Gravity 1.025 (1.005-1.030)
[2023-06-09] MEDS ORDERED: Zofran 4 MG/2 ML VIAL IV ONE (13:49)
[2023-06-09] MEDS ORDERED: MORPHINE SULFATE 4 MG INJ IV ONE (13:49)
[2023-06-09 13:51] LABS: ADD URINE CULTURE? YES (NO)
[2023-06-09] MEDS ORDERED: Zofran 4 MG/2 ML VIAL ONE (13:56)
[2023-06-09] MEDS ORDERED: MORPHINE SULFATE 4 MG INJ ONE (13:57)
[2023-06-09 13:59] LABS: Amphetamine,Urine NEGATIVE (NEGATIVE); Barbiturate,Urine NEGATIVE (NEGATIVE); Benzodiazepine,Urine POSITIVE (NEGATIVE); Cocaine,Urine NEGATIVE (NEGATIVE); Methadone,Urine NEGATIVE (NEGATIVE); Opiate,Urine NEGATIVE (NEGATIVE); PCP,Urine NEGATIVE (NEGATIVE); THC,Urine POSITIVE (NEGATIVE)
[2023-06-09] MEDS ORDERED: ROCEPHIN 1 Gm-D5w 50 ml Bag** 1 G/50 ML IVPB IV STA (14:39)
[2023-06-09] MEDS ORDERED: ROCEPHIN 1 Gm-D5w 50 ml Bag** 1 G/50 ML IVPB IV ONE (14:43)
[2023-06-09] MEDS ORDERED: OMNICEF 300 MG PO SCH (15:00)
[2023-06-09 15:09] VITALS: BP 101/63; PULSE 70; RESP 17; O2SAT 97
== END 2023-06-09 15:15 | disposition home or self-care (01) ==
LOC: ED 12:16
DX: G40.909 Epilepsy, unspecified, not intractable, without status epilepticus (principal); N39.0 Urinary tract infection, site not specified; R51.9 Headache, unspecified; R41.0 Disorientation, unspecified; Z79.899 Other long term (current) drug therapy
CPT/HCPCS: 36000; 36415; 70450; 80053; 80307; 81001; 85025; 87077; 87086; 87186; 93005; 93041; 94760; 96365; 96374; 96375; 99284; J0696; J2270; J2405; A9270-GY

== ENCOUNTER 2024-03-14 23:49 | Emergency (ER) | payer OTHER ==
--- NOTE | 2024-03-14 23:51 | ERPHSYRPT ---
- History of Present Illness Time Seen by Provider: 03/14/24 23:51 Historian: patient Exam Limitations: no limitations Physician History: The patient, with a history of anxiety disorder and seizures, was awakened by a sharp, burning chest pain that radiated to the sides and slightly to the back. The pain, which started around 10:15 PM, was similar to an episode she exp erienced about a month and a half ago, but lasted longer. The pain was accompanied by difficulty breathing and sweating. The patient's blood pressure and heart rate were elevated at 121. She also reported leg cramps from the knee down to the feet. She has been taking Xanax 0.5mg at night for anxiety, lamotrigine for seizures, and Keflex for a bacterial infection. She also took a hydrocodone for leg pain. The patient has a history of smoking but quit in 2002. She has had a Amalia-en-Y gastric bypass surgery and has had her gallbladder and appendix removed. Timing/Duration: today Activities at Onset: sleep Quality: sharpness, stabbing Location: substernal, epigastric Chest Pain Radiation: back Severity of Pain-Max: severe Severity of Pain-Current: severe Modifying Factors: Improves With: nothing Associated Symptoms: hurts to breathe, diaphoresis Prior Chest Pain/Cardiac Workup: no prior chest pain Nitro Today/Relief: 0.4 mg x 1, provided by ED Aspirin Treatment Today: 81 mg x 1, provided by ED Allergies/Adverse Reactions: nitrofurantoin [From Macrobid] Allergy (Verified 03/15/24 00:05) sulfamethoxazole [From Bactrim] Allergy (Verified 03/15/24 00:05) trimethoprim [From Bactrim] Allergy (Verified 03/15/24 00:05) adhesive tape Adverse Reaction (Verified 03/15/24 00:05) Rash RILEY SKIN latex Adverse Reaction (Verified 03/15/24 00:05) Rash Home Medications: Alprazolam [Xanax] 0.5 mg PO DAILY 07/07/13 [History] Multivitamin [Multi-Vitamin Daily] 1 each PO HS 04/15/21 [History] Lamotrigine [Lamotrigine ER] 100 mg PO BID 01/29/22 [History] Cephalexin Mh 250 mg [Keflex 250 mg] 1 tab PO DAILY 03/15/24 [History] Hx Tetanus, Diphtheria Vaccination/Date Given: Yes Hx Influenza Vaccination/Date Given: No Hx Pneumococcal Vaccination/Date Given: No - Review of Systems All Other Systems: Reviewed and Negative - Past Medical History Pertinent Past Medical History: Yes Neurological History: Seizures ENT History: No Pertinent History Cardiac History: No Pertinent History Respiratory History: No Pertinent History Endocrine Medical History: No Pertinent History Musculoskeletal History: Arthritis, Fractures GI Medical History: No Pertinent History History: No Pertinent History Psycho-Social History: Anxiety Female Reproductive Disorders: No Pertinent History Other Medical History: BULDGING DISK. BARRIATIC SURGERY - Past Surgical History Past Surgical History: Yes Neuro Surgical History: No Pertinent History Cardiac: No Pertinent History Respiratory: No Pertinent History Gastrointestinal: Appendectomy, Cholecystectomy Genitourinary: No Pertinent History Musculoskeletal: Orthopedic Surgery Female Surgical History: Section, Hysterectomy Other Surgical History: BARIATRIC SURGERY. bilat shoulder surgeries Significant Family History: no pertinent family hx - Social History Smoking Status: Former smoker Exposure to second hand smoke: No Drug Use: none Patient Lives Alone: No - Nursing Vital Signs Nursing Vital Signs: Initial Vital Signs Temperature 98.1 F 03/14/24 23:53 Pulse Rate 58 L 03/14/24 23:53 Respiratory Rate 18 03/14/24 23:53 Blood Pressure 123/80 03/14/24 23:53 O2 Sat by Pulse Oximetry 100 03/14/24 23:53 Pain Scale Pain Intensity 2 - Physical Exam General Appearance: no apparent distress Eye Exam: PERRL/EOMI, eyes nml inspection Ears, Nose, Throat Exam: normal ENT inspection Respiratory Exam: normal breath sounds, chest tenderness, lungs clear, airway intact, No respiratory distress Cardiovascular Exam: normal heart sounds, bradycardia, capillary refill <2 sec Gastrointestinal/Abdomen Exam: soft, No tenderness, No distention, No mass, No guarding Neurologic Exam: alert, oriented x 3, cooperative Skin Exam: normal color, warm, dry SpO2 Interpretation: normal O2 Delivery: Room Air - Course Nursing assessment & vital signs reviewed: Yes EKG Interpreted by Me: RATE (55), Sinus Rhythm, NORMAL AXIS, NORMAL INTERVALS, NORMAL QRS - CT Exams Chest CT Interpretation: Negative, Tele-radiologist Report Ordered Tests: Active Orders 24 hr Category Date Time Status CTA CHEST W AND/OR WO [CT] Stat Exams 03/15/24 00:25 Completed CBC W DIFF Stat Lab 03/15/24 00:30 Completed CMP Stat Lab 03/15/24 00:30 Completed D-DIMER QUANTITATIVE Stat Lab 03/15/24 00:30 Completed LIPASE Stat Lab 03/15/24 00:56 Completed TROPONIN Q4H Lab 03/15/24 00:30 Completed TROPONIN Q4H Lab 03/15/24 02:36 Completed TROPONIN Q4H Lab 03/15/24 08:15 Ordered Medication Summary Discontinued Medications Generic Name Dose Route Start Last Admin Trade Name João PRN Reason Stop Dose Admin Aspirin 324 mg 03/15/24 00:13 03/15/24 01:06 Aspirin 81 Mg Tab.Chew PO 03/15/24 00:14 324 mg STAT ONE Administration Aspirin Confirm 03/15/24 01:07 Aspirin 81 Mg Tab.Chew Administered 03/15/24 01:08 Dose 324 mg .ROUTE .STK-MED ONE Nitroglycerin 0.4 mg 03/15/24 00:24 03/15/24 01:08 Nitroglycerin 0.4 Mg (Ed) 0.4 Mg Tab.Subl SL 03/15/24 00:25 0.4 mg STAT ONE Administration Nitroglycerin Confirm 03/15/24 01:07 Nitroglycerin 0.4 Mg (Ed) 0.4 Mg Tab.Subl Administered 03/15/24 01:08 Dose 0.4 mg SL .STK-MED ONE Pantoprazole Sodium 40 mg 03/15/24 00:30 03/15/24 01:08 Pantoprazole 40 Mg Vial IV 03/15/24 00:31 40 mg STAT ONE Administration Pantoprazole Sodium Confirm 03/15/24 01:07 Pantoprazole 40 Mg Vial Administered 03/15/24 01:08 Dose 40 mg IV .STK-MED ONE Lab/Rad Data: Laboratory Result Diagrams 03/15/24 00:30 03/15/24 00:30 Laboratory Results 03/15/24 03/15/24 03/15/24 Range/Units 02:36 00:56 00:30 WBC (3.98-10.04) x10^3/uL RBC (3.93-5.22) x10^6/uL Hgb (11.2-15.7) g/dL Hct (34.1-44.9) % MCV (79.4-94.8) fL MCH (25.6-32.2) pg MCHC (32.2-35.5) g/dL RDW (11.7-14.4) % Plt Count (182-369) x10^3/uL MPV (9.4-12.3) fL Gran % (34.0-71.1) % Immature Gran % (Auto) (0.001-0.429) % Nucleat RBC Rel Count (0.00-0.2) % Eos # (Auto) (0.04-0.36) x10^3/uL Immature Gran # (Auto) (0.001-0.031) x10^3u/L Absolute Lymphs (auto) (1.18-3.74) x10^3/uL Absolute Monos (auto) (0.24-0.86) x10^3/uL Absolute Nucleated RBC (0.00-0.012) x10^3u/L Lymphocytes % (19.3-51.7) % Monocytes % (4.7-12.5) % Eosinophils % (0.7-5.8) % Basophils % (0.1-1.2) % Absolute Granulocytes (1.56-6.13) x10^3/uL Basophils # (0.01-0.08) x10^3/uL D-Dimer (0.0-0.50) mg/L Sodium (135-145) mmol/L Potassium (3.5-5.1) mmol/L Chloride (98-107) mmol/L Carbon Dioxide (22-30) mmol/L Anion Gap (5-15) MEQ/L BUN (7-17) mg/dL Creatinine (0.52-1.04) mg/dL Estimated GFR ML/MIN Glucose (74-106) mg/dL Calcium (8.4-10.2) mg/dL Total Bilirubin (0.2-1.3) mg/dL AST (14-36) U/L ALT (0-35) U/L Alkaline Phosphatase (38-126) U/L Troponin I < 0.012 < 0.012 (0.000-0.033) ng/mL Serum Total Protein (6.3-8.2) g/dL Albumin (3.5-5.0) g/dL Lipase 108 (23-300) U/L 03/15/24 03/15/24 03/15/24 Range/Units 00:30 00:30 00:30 WBC 7.5 (3.98-10.04) x10^3/uL RBC 4.06 (3.93-5.22) x10^6/uL Hgb 12.4 (11.2-15.7) g/dL Hct 37.2 (34.1-44.9) % MCV 91.6 (79.4-94.8) fL MCH 30.5 (25.6-32.2) pg MCHC 33.3 (32.2-35.5) g/dL RDW 13.7 (11.7-14.4) % Plt Count 262 (182-369) x10^3/uL MPV 9.4 (9.4-12.3) fL Gran % 64.7 (34.0-71.1) % Immature Gran % (Auto) 0.5 H (0.001-0.429) % Nucleat RBC Rel Count 0.0 (0.00-0.2) % Eos # (Auto) 0.09 (0.04-0.36) x10^3/uL Immature Gran # (Auto) 0.04 H (0.001-0.031) x10^3u/L Absolute Lymphs (auto) 2.04 (1.18-3.74) x10^3/uL Absolute Monos (auto) 0.46 (0.24-0.86) x10^3/uL Absolute Nucleated RBC 0.00 (0.00-0.012) x10^3u/L Lymphocytes % 27.2 (19.3-51.7) % Monocytes % 6.1 (4.7-12.5) % Eosinophils % 1.2 (0.7-5.8) % Basophils % 0.3 (0.1-1.2) % Absolute Granulocytes 4.86 (1.56-6.13) x10^3/uL Basophils # 0.02 (0.01-0.08) x10^3/uL D-Dimer < 0.19 (0.0-0.50) mg/L Sodium 137 (135-145) mmol/L Potassium 3.8 (3.5-5.1) mmol/L Chloride 108 H (98-107) mmol/L Carbon Dioxide 24 (22-30) mmol/L Anion Gap 8.7 (5-15) MEQ/L BUN 26 H (7-17) mg/dL Creatinine 0.60 (0.52-1.04) mg/dL Estimated GFR 102.1 ML/MIN Glucose 88 (74-106) mg/dL Calcium 9.3 (8.4-10.2) mg/dL Total Bilirubin 0.60 (0.2-1.3) mg/dL AST 46 H (14-36) U/L ALT 34 (0-35) U/L Alkaline Phosphatase 59 (38-126) U/L Troponin I (0.000-0.033) ng/mL Serum Total Protein 6.5 (6.3-8.2) g/dL Albumin 4.3 (3.5-5.0) g/dL Lipase (23-300) U/L - Progress Progress: improved Air Movement: good Progress Note: Laboratory evaluation unremarkable. Negative troponin x 2. Normal lipase. CBC and CMP within normal limits. CTA chest to rule out aortic dissection was within normal limits. Pain improved with Protonix. I discussed with the patient that her initial chest pain could been related to her elevated heart rate, anxiety or GERD. I encouraged follow-up with her primary care physician and director talent management within the next week for further evaluation. Restart omepra zole 40 mg daily that she has at home. Blood Culture(s) Obtained: No Antibiotics given: No Counseled pt/family regarding: lab results, diagnosis, need for follow-up, rad results Medical Desision Making - Diagnostic Testing Diagnostic test were ordered, analyzed, and reviewed by me: Yes Radiological Interpretation: Interpreted by me, Reviewed by me, Teleradiologist Report - Risk of complications The pt has a mod risk of morbidity or mortality based on: Need for prescription drug management - Departure Departure Disposition: Home Clinical Impression: Chest pain, GERD (gastroesophageal reflux disease) Condition: Good Critical Care Time: No Referrals: JONATAN VALLADARES [Primary Care Provider] - Follow up/PCP as directed Instructions: Chest Pain (DC)
[2024-03-14 23:54] VITALS: TEMP 98.1
[2024-03-15 00:35] LABS: Absolute Neutrophil Ct (ANC) 4.86 x10^3/uL (1.56-6.13); BASOPHIL % 0.3 % (0.1-1.2); Basophil (Absolute #) 0.02 x10^3/uL (0.01-0.08); Eosinophil % 1.2 % (0.7-5.8); Eosinophil (Absolute #) 0.09 x10^3/uL (0.04-0.36); Hematocrit 37.2 % (34.1-44.9); Hemoglobin 12.4 g/dL (11.2-15.7); IMMATURE GRAN # 0.04 x10^3u/L (0.001-0.031); IMMATURE GRAN % 0.5 % (0.001-0.429); Lymphocyte (Absolute #) 2.04 x10^3/uL (1.18-3.74); Lymphocytes % 27.2 % (19.3-51.7); Mean Cell Volume 91.6 fL (79.4-94.8); Mean Corpuscular Hemoglobin 30.5 pg (25.6-32.2); Mean Corpuscular Hgb Concent. 33.3 g/dL (32.2-35.5); Mean Platelet Volume 9.4 fL (9.4-12.3); Monocyte (Absolute #) 0.46 x10^3/uL (0.24-0.86); Monocytes % 6.1 % (4.7-12.5); Neutrophil % 64.7 % (34.0-71.1); Platelet Count 262 x10^3/uL (182-369); Red Blood Count 4.06 x10^6/uL (3.93-5.22); Red Cell Distribution Width 13.7 % (11.7-14.4); White Blood Count 7.5 x10^3/uL (3.98-10.04)
[2024-03-15 00:46] LABS: ALBUMIN 4.3 g/dL (3.5-5.0); ANION GAP 8.7 MEQ/L (5-15); BILIRUBIN,TOTAL 0.6 mg/dL (0.2-1.3); Calcium 9.3 mg/dL (8.4-10.2); Creatinine 1 0.6 mg/dL (0.52-1.04); EST GLOMERULAR FILTRATION RATE 102.1 ML/MIN; Potassium 3.8 mmol/L (3.5-5.1); Total Protein 6.5 g/dL (6.3-8.2)
[2024-03-15] MEDS: BABY ASPIRIN 81 MG CHEW PO ONE (01:06)
[2024-03-15] MEDS ORDERED: BABY ASPIRIN 81 MG CHEW ONE (01:07)
[2024-03-15] MEDS ORDERED: PROTONIX 40 MG IV IV ONE (01:07)
[2024-03-15] MEDS ORDERED: Nitrostat 0.4 MG (ED) SL ONE (01:07)
[2024-03-15] MEDS: PROTONIX 40 MG IV IV ONE (01:08)
[2024-03-15] MEDS: Nitrostat 0.4 MG (ED) SL ONE (01:08)
--- NOTE | 2024-03-15 01:56 | XRAY ---
CLINICAL HISTORY: concern for aortic disection COMPARISON: None. TECHNIQUE: Contiguous axial CT images of the chest were acquired with the administration of 80 ml Isovue-370 intravenous contrast. Coronal and sagittal reconstructions were obtained. One of the following dose reduction techniques was utilized for this exam. Automated exposure control, adjustment of the mA and/or kV according to patient size, and use of iterative reconstruction. One of these 3D techniques was utilized: Maximum Intensity Pixel (MIP), 3D Reconstructed Images, Volume Rendered Images, Surface Shaded Rendering. FINDINGS: The normal diameter of the ascending, arch and descending thoracic aorta, no evidence of dissection, aneurysmal dilatation or significant stenosis. The scanned pulmonary parenchyma shows no definite consolidative lesions. Atelectatic bands seen at right middle and both lower lung lobes. No free or encysted pleural effusion. Heart size is normal, and there is no pericardial effusion. No pathologically enlarged mediastinal, hilar or axillary lymph node was identified. There is no definite mass lesion in the chest wall. Scanned upper abdomen is unremarkable. IMPRESSION: 1. Unremarkable CT study for the chest. 2. Normal aorta, no evidence of dissection, aneurysmal dilatation or significant stenosis. Electronically Signed by: Chandler Castro MD. (03/15/2024 01:51:18 EDT)
[2024-03-15 02:32] VITALS: O2SAT 97
[2024-03-15 03:04] VITALS: BP 100/64; PULSE 45; RESP 15
== END 2024-03-15 03:20 | disposition home or self-care (01) ==
LOC: ED 23:49
DX: R07.9 Chest pain, unspecified (principal); K21.9 Gastro-esophageal reflux disease without esophagitis; R06.00 Dyspnea, unspecified; R25.2 Cramp and spasm; Z79.899 Other long term (current) drug therapy
CPT/HCPCS: 36000; 36415; 71275; 80053; 83690; 84484; 85025; 85379; 96374; 99284; A9270-GY